=== PATIENT | female | born 1960 | race Caucasian/White ===

== ENCOUNTER 2019-02-14 08:58 | Observation (INO) | payer OTHER ==
[~2019-02-14] VITALS: Ht 160 cm; Wt 87.5 kg
[2019-02-14 09:08] VITALS: BP 134/75
[2019-02-14 17:14] VITALS: BP 142/83
[2019-02-14 22:30] VITALS: BP 141/79
[2019-02-15 05:20] VITALS: BP 140/74
[2019-02-15 07:37] VITALS: BP 122/69
[2019-02-15 11:34] VITALS: BP 123/68
[2019-02-15 15:09] VITALS: BP 116/64
== END 2019-02-15 16:26 | disposition home or self-care (01) ==
LOC: GI 08:58 → OR 11:00 → MU 16:23
PROVIDERS: ADMIT Surgery
DX: K80.20 Calculus of gallbladder without cholecystitis without obstruction (principal)
CPT/HCPCS: G0378; J0330; J0690; J1170; J2250; J2270; J2405; J2704; J2710; J3010; J3490; J7030; J7120